=== PATIENT | female | born 1950 | race Caucasian/White ===

== ENCOUNTER 2020-01-09 13:11 | Observation (INO) | payer OTHER, MEDICARE ==
[2020-01-09] MEDS ORDERED: Sodium Chloride 0.9% 1000 ML 1,000 ML IV SCH ×2 (13:45→20:30)
[2020-01-09] MEDS ORDERED: Sodium Chloride 0.9% 1000 ML 1,000 ML ONE ×2 (13:46→15:27)
--- NOTE | 2020-01-09 13:47 | ERPHSYRPT ---
- History of Present Illness Time Seen by Provider: 01/09/20 13:20 Source: patient Exam Limitations: no limitations Patient Subjective Stated Complaint: PT states "I got sick at work and vomited, I was lightheaded as well" Triage Nursing Assessment: Pt presented alert and oriented X 3, skin pwd Pt ambulates with an upright steady gait, able to speak in clear sentences. pt in no apparent respiratory distress. Physician History: Is a 69-year-old female presents to our ED for evaluation of feeling unwell. Patient states that she became nauseous at work this morning. Patient vomited once. She began to feel lightheaded. No chest pain or shortness of breath. Fever. No trauma. Symptoms are constant. Symptoms are mild to moderate in intensity. No specific worsening or improving factors. Patient voices no other complaints or concerns at this time. Timing/Duration: today Severity: mild Modifying Factors: Improves With: nothing Associated Symptoms: nausea, vomiting, No abdominal pain, No shortness of breat h, No diaphoresis, No cough, No chills, No chest pain, No fever, No headaches, No loss of appetite, No malaise, No rash, No syncope, No seizure, No weakness Allergies/Adverse Reactions: No Known Drug Allergies Allergy (Verified 01/09/20 13:32) Home Medications: No Reportable Medications [No Reported Medications] 01/09/20 [History] Hx Tetanus, Diphtheria Vaccination/Date Given: No Hx Influenza Vaccination/Date Given: Yes Hx Pneumococcal Vaccination/Date Given: No Immunizations Up to Date: Yes Travel Risk - International Travel Have you traveled outside of the country in past 3 weeks: No - Coronavirus Screening Are you exhibiting any of the following symptoms?: No Close contact with a COVID-19 positive Pt in past 14-21 Days: No - Review of Systems Constitutional: No Symptoms, No Fever, No Chills Eyes: No Symptoms Ears, Nose, & Throat: No Symptoms Respiratory: No Symptoms, No Cough, No Dyspnea Cardiac: No Symptoms, No Chest Pain, No Edema, No Syncope Abdominal/Gastrointestinal: No Symptoms, No Abdominal Pain, No Nausea, No Vomiting, No Diarrhea Genitourinary Symptoms: No Symptoms, No Dysuria Musculoskeletal: No Symptoms, No Back Pain, No Neck Pain Skin: No Symptoms, No Rash Neurological: No Symptoms, No Dizziness, No Focal Weakness, No Sensory Changes Psychological: No Symptoms Endocrine: No Symptoms Hematologic/Lymphatic: No Symptoms Immunological/Allergic: No Symptoms All Other Systems: Reviewed and Negative - Past Medical History Pertinent Past Medical History: Yes Neurological History: No Pertinent History ENT History: No Pertinent History Cardiac History: No Pertinent History Respiratory History: No Pertinent History 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, Brunswick's Disease, Diabetes Type I Musculoskeletal History: No Pertinent History GI Medical History: No Pertinent History History: No Pertinent History Psycho-Social History: No Pertinent History Female Reproductive Disorders: No Pertinent History - Past Surgical History Past Surgical History: Yes Other Surgical History: partial cornea transplant - Social History Smoking Status: Never smoker Exposure to second hand smoke: Yes Drug Use: none Patient Lives Alone: Yes - Female History Hx Now: No - Nursing Vital Signs Nursing Vital Signs: Initial Vital Signs Temperature 97.9 F 01/09/20 13:16 Pulse Rate 68 01/09/20 13:16 Respiratory Rate 18 01/09/20 13:16 Blood Pressure 159/86 01/09/20 13:16 O2 Sat by Pulse Oximetry 93 L 01/09/20 13:16 Pain Scale Pain Intensity 0 - Physical Exam General Appearance: no apparent distress, alert Eye Exam: PERRL/EOMI, eyes nml inspection Ears, Nose, Throat Exam: normal ENT inspection, TMs normal, pharynx normal, moist mucous membranes Neck Exam: normal inspection, non-tender, supple, full range of motion Respiratory Exam: normal breath sounds, lungs clear, No respiratory distress Cardiovascular Exam: regular rate/rhythm, normal heart sounds, normal peripheral pulses Gastrointestinal/Abdomen Exam: soft, normal bowel sounds, No tenderness, No mass Back Exam: normal inspection, normal range of motion, No CVA tenderness, No vertebral tenderness Extremity Exam: normal inspection, normal range of motion, pelvis stable Neurologic Exam: alert, oriented x 3, cooperative, normal mood/affect, nml cerebellar function, nml station & gait, sensation nml, No motor deficits Skin Exam: normal color, warm, dry, No rash Lymphatic Exam: No adenopathy SpO2 Interpretation: normal SpO2: 93 O2 Delivery: Room Air - Course Nursing assessment & vital signs reviewed: Yes EKG Interpreted by Me: RATE (65), Sinus Rhythm, NORMAL AXIS, NORMAL INTERVALS - Radiology Exams Chest X-ray Interpretation: Teleradiologist Report (Negative for acute pathology.) - CT Exams Head CT Interpretation: Tele-radiologist Report (Right external capsule distant lacunar infarct.) Ordered Tests: Active Orders 24 hr Category Date Time Status Paste Worker STAT Care 01/09/20 13:44 Active EKG-ER Only STAT Care 01/09/20 13:43 Active IV Insertion STAT Care 01/09/20 13:43 Active Pulse Oximetry (ED) STAT Care 01/09/20 13:43 Active CHEST 1 VIEW (PORTABLE) Stat Exams 01/09/20 13:44 Completed HEAD WITHOUT CONTRAST [CT] Stat Exams 01/09/20 13:45 Completed CBC W DIFF Stat Lab 01/09/20 13:45 Completed CMP Stat Lab 01/09/20 13:45 Completed ETHYL ALCOHOL Stat Lab 01/09/20 13:45 Completed MAGNESIUM Stat Lab 01/09/20 13:45 Completed TROPONIN Q3H Lab 01/09/20 13:45 Completed TROPONIN Q3H Lab 01/09/20 16:47 Received TROPONIN Q3H Lab 01/09/20 19:45 Ordered TROPONIN Q3H Lab 01/09/20 22:45 Ordered TROPONIN Q3H Lab 01/10/20 01:45 Ordered UA W/RFX UR CULTURE Stat Lab 01/09/20 13:44 Ordered Urine Triage Profile Stat Lab 01/09/20 13:44 Ordered Transfer Order Routine Transfer 01/09/20 Ordered Medication Summary Generic Name Dose Route Start Last Admin Trade Name Freq PRN Reason Stop Dose Admin Sodium Chloride 1,000 mls @ 50 mls/hr 01/09/20 13:45 01/09/20 13:47 Sodium Chloride 0.9% 1000 Ml IV 02/08/20 13:44 50 mls/hr .Q20H VIVIAN Administration Discontinued Medications Generic Name Dose Route Start Last Admin Trade Name Freq PRN Reason Stop Dose Admin Aspirin 324 mg 01/09/20 15:17 01/09/20 15:30 Baby Aspirin 81 Mg Chew PO 01/09/20 15:18 324 mg STAT ONE Administration Aspirin Confirm 01/09/20 15:27 Baby Aspirin 81 Mg Chew Administered 01/09/20 15:28 Dose 324 mg .ROUTE .STK-MED ONE Meclizine HCl 25 mg 01/09/20 15:17 01/09/20 15:29 Antivert 25 Mg PO 01/09/20 15:18 25 mg STAT ONE Administration Meclizine HCl Confirm 01/09/20 15:27 Antivert 25 Mg Administered 01/09/20 15:28 Dose 25 mg .ROUTE .STK-MED ONE Lab/Rad Data: Laboratory Result Diagrams 01/09/20 13:45 01/09/20 13:45 Laboratory Results 01/09/20 01/09/20 01/09/20 Range/Units 15:36 13:45 13:45 WBC (4.0-10.5) K/mm3 RBC (4.1-5.4) M/mm3 Hgb (12.0-16.0) gm/dl Hct (35-47) % MCV (78-100) fl MCH (26-32) pg MCHC (32-36) g/dl RDW (11.5-14.0) % Plt Count (150-450) K/mm3 MPV (7.5-11.0) fl Gran % (36.0-66.0) % Eos # (Auto) (0-0.5) Absolute Lymphs (auto) (1.0-4.6) Absolute Monos (auto) (0.0-1.3) Lymphocytes % (24.0-44.0) % Monocytes % (0.0-12.0) % Eosinophils % (0.00-5.0) % Basophils % (0.0-0.4) % Absolute Granulocytes (1.4-6.9) Basophils # (0-0.4) Sodium 140 (137-145) mmol/L Potassium 4.3 (3.5-5.1) mmol/L Chloride 109 H (98-107) mmol/L Carbon Dioxide 20 L (22-30) mmol/L Anion Gap 15.2 H (5-15) MEQ/L BUN 30 H (7-17) mg/dL Creatinine 0.68 (0.52-1.04) mg/dL Estimated GFR > 60.0 ML/MIN Glucose 129 H (74-106) mg/dL Calcium 9.1 (8.4-10.2) mg/dL Magnesium 2.3 (1.6-2.3) mg/dL Total Bilirubin 0.90 (0.2-1.3) mg/dL AST 67 H (14-36) U/L ALT 55 H (0-35) U/L Alkaline Phosphatase 64 (38-126) U/L Troponin I < 0.012 (0.000-0.034) ng/mL Serum Total Protein 7.7 (6.3-8.2) g/dL Albumin 4.2 (3.5-5.0) g/dL Ethyl Alcohol < 10 (0-10) mg/dL SARS-CoV-2 (PCR) POSITIVE A (NEGATIVE) 01/09/20 Range/Units 13:45 WBC 5.0 (4.0-10.5) K/mm3 RBC 5.54 H (4.1-5.4) M/mm3 Hgb 15.5 (12.0-16.0) gm/dl Hct 45.8 (35-47) % MCV 82.7 (78-100) fl MCH 28.0 (26-32) pg MCHC 33.8 (32-36) g/dl RDW 14.1 H (11.5-14.0) % Plt Count 240 (150-450) K/mm3 MPV 10.9 (7.5-11.0) fl Gran % 65.0 (36.0-66.0) % Eos # (Auto) 0.02 (0-0.5) Absolute Lymphs (auto) 1.04 (1.0-4.6) Absolute Monos (auto) 0.67 (0.0-1.3) Lymphocytes % 20.9 L (24.0-44.0) % Monocytes % 13.5 H (0.0-12.0) % Eosinophils % 0.4 (0.00-5.0) % Basophils % 0.2 (0.0-0.4) % Absolute Granulocytes 3.24 (1.4-6.9) Basophils # 0.01 (0-0.4) Sodium (137-145) mmol/L Potassium (3.5-5.1) mmol/L Chloride (98-107) mmol/L Carbon Dioxide (22-30) mmol/L Anion Gap (5-15) MEQ/L BUN (7-17) mg/dL Creatinine (0.52-1.04) mg/dL Estimated GFR ML/MIN Glucose (74-106) mg/dL Calcium (8.4-10.2) mg/dL Magnesium (1.6-2.3) mg/dL Total Bilirubin (0.2-1.3) mg/dL AST (14-36) U/L ALT (0-35) U/L Alkaline Phosphatase (38-126) U/L Troponin I (0.000-0.034) ng/mL Serum Total Protein (6.3-8.2) g/dL Albumin (3.5-5.0) g/dL Ethyl Alcohol (0-10) mg/dL SARS-CoV-2 (PCR) (NEGATIVE) - Progress Progress: improved Progress Note: 01/09/20 17:30 Patient reassessed. She is Covid positive. Patient continues to be dizzy however dizziness improved after meclizine administration. Patient ambulated in our ED. Normal gait. Repeat neuro exam within normal limits. Due to ongoing symptoms and Covid positive status we will admit patient for further evaluation and monitoring. Case discussed with Dr. Costa who accepts admission to the Covid unit. Plan of care discussed with patient. She agrees to admission to [facility] for further evaluation and treatment. 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 01/09/20 17:31 Counseled pt/family regarding: lab results, diagnosis, rad results - Departure Departure Disposition: Observation Clinical Impression: COVID-19, Dizziness Condition: Stable Critical Care Time: No Referrals: GARRET COSTA [ACTIVE STAFF] -
--- NOTE | 2020-01-09 14:15 | XRAY ---
Indication: Dizziness. Comparison: None Portable chest slightly rotated with minimal left costophrenic angle infiltrate versus atelectasis. Remaining heart and lungs unremarkable. Bony thorax intact with mild degenerative changes.
--- NOTE | 2020-01-09 14:18 | XRAY ---
Indication: Nausea and lightheaded. No known injury. Multiple contiguous axial images obtained through the head without contrast. Comparison: None Global atrophy within normal limits for patient's age. Tiny right external capsule lacunar infarct. No acute intracranial hemorrhage, abnormal extra-axial fluid collection, or mass effect. Fourth ventricle is midline without hydrocephalus. Lozano-white matter differentiation preserved. Bony calvarium intact. Visualized paranasal sinuses and mastoid air cells are clear. Impression: Right external capsule remote lacunar infarct. Remaining CT head without contrast exam is negative.
[2020-01-09 14:29] LABS: Absolute Neutrophil Ct (ANC) 3.24 (1.4-6.9); BASOPHIL % 0.2 % (0.0-0.4); Basophil (Absolute #) 0.01 (0-0.4); Eosinophil % 0.4 % (0.00-5.0); Eosinophil (Absolute #) 0.02 (0-0.5); Hematocrit 45.8 % (35-47); Hemoglobin 15.5 gm/dl (12.0-16.0); Lymphocyte (Absolute #) 1.04 (1.0-4.6); Lymphocytes % 20.9 % (24.0-44.0); Mean Cell Volume 82.7 fl (78-100); Mean Corpuscular Hgb Concent. 33.8 g/dl (32-36); Mean Platelet Volume 10.9 fl (7.5-11.0); Monocyte (Absolute #) 0.67 (0.0-1.3); Monocytes % 13.5 % (0.0-12.0); Platelet Count 240 K/mm3 (150-450); Red Blood Count 5.54 M/mm3 (4.1-5.4); Red Cell Distribution Width 14.1 % (11.5-14.0)
[2020-01-09 14:45] LABS: ALBUMIN 4.2 g/dL (3.5-5.0); ALKALINE PHOSPHATASE 64 U/L (38-126); ANION GAP 15.2 MEQ/L (5-15); BLOOD UREA NITROGEN 30 mg/dL (7-17); CHLORIDE 109 mmol/L (98-107); Calcium 9.1 mg/dL (8.4-10.2); Carbon Dioxide 20 mmol/L (22-30); Creatinine 1 0.68 mg/dL (0.52-1.04); EST GLOMERULAR FILTRATION RATE > 60.0 ML/MIN; Glucose 129 mg/dL (74-106); MAGNESIUM 2.3 mg/dL (1.6-2.3); Potassium 4.3 mmol/L (3.5-5.1); SGOT/AST 67 U/L (14-36); SGPT/ALT 55 U/L (0-35); SODIUM 140 mmol/L (137-145); Total Protein 7.7 g/dL (6.3-8.2)
[2020-01-09 15:04] LABS: ETHYL ALCOHOL < 10 mg/dL (0-10)
[2020-01-09] MEDS ORDERED: BABY ASPIRIN 81 MG CHEW PO ONE (15:17)
[2020-01-09] MEDS ORDERED: ANTIVERT 25 MG PO ONE (15:17)
[2020-01-09] MEDS ORDERED: BABY ASPIRIN 81 MG CHEW ONE (15:27)
[2020-01-09] MEDS ORDERED: ANTIVERT 25 MG ONE (15:27)
[2020-01-09] MEDS ORDERED: Zofran 4 MG/2 ML VIAL IV PRN (19:48)
[2020-01-09] MEDS ORDERED: MILK OF MAGNESIA 30 ML PO PRN (19:48)
[2020-01-09] MEDS ORDERED: MAALOX ES 30 ML UNIT DOSE PO PRN (19:48)
[2020-01-09] MEDS ORDERED: Sodium Chloride 0.9% 500 ML 500 ML IV SCH (19:48)
[2020-01-09] MEDS ORDERED: TYLENOL 325 MG PO PRN (19:48)
[2020-01-09] MEDS ORDERED: Senokot-S Tablet PO PRN (19:48)
[2020-01-10 06:35] LABS: Risk Ratio 3.7
[2020-01-10 07:36] LABS: Appearance SLIGHTLY CLOUDY (CLEAR); Bacteria MANY /HPF (NEGATIVE); Bilirubin NEGATIVE (NEGATIVE); Blood SMALL Ery/ul (0-5); Epithelial Cells RARE /HPF (FEW); Glucose NEGATIVE (NEGATIVE); Ketones SMALL (NEGATIVE); Leukocyte Esterase MODERATE (NEGATIVE); Mucus MODERATE /HPF (NEGATIVE); Nitrite POSITIVE (NEGATIVE); Protein,Urine Dip 30 (Negative); Specific Gravity 1.029 (1.005-1.025); Urobilinogen 4 mg/dL (0-1); WBC 26-50 /HPF (0-5)
[2020-01-10 07:51] LABS: Amphetamine,Urine NEGATIVE (NEGATIVE); Barbiturate,Urine NEGATIVE (NEGATIVE); Benzodiazepine,Urine NEGATIVE (NEGATIVE); Cocaine,Urine NEGATIVE (NEGATIVE); Methadone,Urine NEGATIVE (NEGATIVE); Opiate,Urine NEGATIVE (NEGATIVE); PCP,Urine NEGATIVE (NEGATIVE); THC,Urine NEGATIVE (NEGATIVE)
[2020-01-10 08:52] VITALS: BP 142/70
[2020-01-10 11:58] VITALS: O2SAT 92
[2020-01-10 12:50] VITALS: PULSE 73
== END 2020-01-10 12:10 | disposition home or self-care (01) ==
LOC: ED 13:11 → MED SURG 19:45
PROVIDERS: ADMIT Family Medicine; ATTEND Family Medicine
DX: U07.1 COVID-19 (principal); R11.2 Nausea with vomiting, unspecified; R42 Dizziness and giddiness; E10.8 Type 1 diabetes mellitus with unspecified complications; E27.1 Primary adrenocortical insufficiency; Z11.59 Encounter for screening for other viral diseases; Z79.899 Other long term (current) drug therapy
CPT/HCPCS: 36000; 36415; 70450; 71045; 80053; 80061; 80307; 81001; 83721; 83735; 84484; 85025; 87077; 87086; 87186; 93005; 93041; 93268; 94760; 94762; 99285; G0378; U0003; A9270-GY; G0480